=== PATIENT | female | born 1980 | race African-American/Black ===

== ENCOUNTER 2024-12-29 02:45 | Emergency (ER) | payer MEDICAID ==
[~2024-12-29] VITALS: Ht 167.6 cm; Wt 71.2 kg
[2024-12-29 02:54] VITALS: O2SAT 100
[2024-12-29] MEDS: ONDANSETRON HCL 4MG/2ML INJ IV ONE (03:44)
[2024-12-29] MEDS: KETOROLAC 15MG/ML VIAL IV ONE (03:44)
[2024-12-29] MEDS: SODIUM CHLORIDE 0.9% 1,000 ML IV ONE (03:44)
[2024-12-29 03:47] LABS: BASOPHILS % 3.3 % (0.0-2.0); EOSINOPHILS % 0.7 % (0.0-5.0); HEMATOCRIT. 37.3 % (36.0-48.0); HEMOGLOBIN. 12.7 g/dL (12.0-16.0); LYMPHOCYTES % 42.9 % (20.0-50.0); MEAN PLATELET VOLUME 9.0 fl (7.4-10.4); MONOCYTES % 7.7 % (2.0-8.0); NEUTROPHILS % 45.4 % (40.0-76.0); PLATELET 293 x1000/uL (130-400); RED BLOOD CELL COUNT 3.78 mill/uL (4.2-5.4); RED CELL DISTRIBUTION WIDTH 15.6 % (11.6-14.6)
[2024-12-29 03:49] LABS: COLOR URINE DARK YELLOW (YELLOW)
[2024-12-29 03:50] LABS: CLARITY URINE CLEAR (CLEAR); GLUCOSE URINE NEGATIVE (NEGATIVE); KETONES URINE NEGATIVE (NEGATIVE); LEUKOCYTE ESTERASE URINE TRACE (NEGATIVE); NITRITE URINE NEGATIVE (NEGATIVE); OCCULT BLOOD URINE NEGATIVE (NEGATIVE); PH URINE 7.0 (4.5-8.0); PROTEIN URINE NEGATIVE (NEGATIVE); SPECIFIC GRAVITY URINE 1.021 (1.005-1.030); UROBILINOGEN URINE 1.0 E.U./dL (0.2-1.0)
[2024-12-29 04:01] LABS: *AMPHETAMINES SCREEN URINE NEGATIVE (NEGATIVE)
[2024-12-29 04:02] LABS: *BARBITURATES SCREEN URINE NEGATIVE (NEGATIVE); *BENZODIAZEPINES SCREEN URINE NEGATIVE (NEGATIVE); *COCAINE SCREEN URINE NEGATIVE (NEGATIVE); CANNABINOID URINE SCREEN NEGATIVE (NEGATIVE); ECSTASY MDMA SCREEN URINE NEGATIVE (NEGATIVE); METHADONE URINE SCREEN NEGATIVE (NEGATIVE); OPIATES URINE SCREEN NEGATIVE (NEGATIVE); PHENCYCLIDINE URINE SCREEN NEGATIVE (NEGATIVE)
[2024-12-29] MEDS: HYDROXYZINE 25MG TABLET PO ONE (04:03)
[2024-12-29 04:05] LABS: TROPONIN I HIGH SENSITIVITY < 4 ng/L (3.0-34)
[2024-12-29 04:06] LABS: CREATININE 0.8 mg/dL (0.6-1.0)
[2024-12-29 04:07] LABS: UREA NITROGEN BLOOD 7 mg/dL (9-23)
[2024-12-29 04:08] LABS: ASPARTATE AMINOTRANSFERASE 405 IU/L (<34)
[2024-12-29 04:09] LABS: BILIRUBIN DIRECT 1.8 mg/dL (<=3.0); BILIRUBIN TOTAL 2.8 mg/dL (0.1-1.0); PROTEIN TOTAL 6.8 g/dL (6.0-8.3)
[2024-12-29 05:37] VITALS: BP 138/92; PULSE 85; RESP 16; TEMP 36.7; O2SAT 100
== END 2024-12-29 05:42 | disposition home or self-care (01) ==
LOC: ER 02:59
DX: M79.10 Myalgia, unspecified site (principal); R06.02 Shortness of breath
CPT/HCPCS: 80076; 80305; 80048; 81003; 81025; 80320; 83690; 85025; 85379; 84484; 36415; 71045; 76705; 93005; 96361; 96374; 96375; 99285; J1885; J2405; J7030; G0480

== ENCOUNTER 2025-01-16 07:38 | Emergency (ER) | payer MEDICAID ==
[~2025-01-16] VITALS: Ht 167.6 cm; Wt 70.0 kg
[~2025-01-16 07:38] MED LIST: CLOT45CR62 VG; DOXY100T2 MT; FOLI-43 PO; THIA100T72 PO
[2025-01-16 07:40] VITALS: O2SAT 96
[2025-01-16 08:20] LABS: BASOPHILS % 1.5 % (0.0-2.0); EOSINOPHILS % 1.3 % (0.0-5.0); HEMATOCRIT. 34.6 % (36.0-48.0); HEMOGLOBIN. 11.4 g/dL (12.0-16.0); LYMPHOCYTES % 41.1 % (20.0-50.0); MEAN PLATELET VOLUME 8.7 fl (7.4-10.4); MONOCYTES % 14.1 % (2.0-8.0); NEUTROPHILS % 42.0 % (40.0-76.0); PLATELET 181 x1000/uL (130-400); RED BLOOD CELL COUNT 3.30 mill/uL (4.2-5.4); RED CELL DISTRIBUTION WIDTH 16.8 % (11.6-14.6)
[2025-01-16 08:29] LABS: HCG SCREEN NEGATIVE
[2025-01-16 08:34] LABS: CREATININE 0.7 mg/dL (0.6-1.0)
[2025-01-16 08:35] LABS: UREA NITROGEN BLOOD 10 mg/dL (9-23)
[2025-01-16 08:36] LABS: ASPARTATE AMINOTRANSFERASE 121 IU/L (<34)
[2025-01-16 08:37] LABS: BILIRUBIN DIRECT 0.9 mg/dL (<=3.0); BILIRUBIN TOTAL 1.4 mg/dL (0.1-1.0); PROTEIN TOTAL 6.1 g/dL (6.0-8.3)
[2025-01-16] MEDS: METOCLOPRAMIDE HCL 10MG/2ML VIAL IV ONE (08:42)
[2025-01-16] MEDS: SODIUM CHLORIDE 0.9% 1,000 ML IV ONE (08:42)
[2025-01-16 09:21] LABS: CLARITY URINE TURBID (CLEAR); COLOR URINE YELLOW (YELLOW); GLUCOSE URINE NEGATIVE (NEGATIVE); KETONES URINE NEGATIVE (NEGATIVE); LEUKOCYTE ESTERASE URINE NEGATIVE (NEGATIVE); NITRITE URINE NEGATIVE (NEGATIVE); OCCULT BLOOD URINE NEGATIVE (NEGATIVE); PH URINE 5.5 (4.5-8.0); PROTEIN URINE NEGATIVE (NEGATIVE); SPECIFIC GRAVITY URINE 1.019 (1.005-1.030); UROBILINOGEN URINE 0.2 E.U./dL (0.2-1.0)
[2025-01-16 09:23] VITALS: BP 107/72; PULSE 103; RESP 18; TEMP 36.4; O2SAT 96
[2025-01-16 09:33] LABS: BACTERIA URINE 2+; SQUAMOUS EPITHELIAL CELL URINE 3+ /lpf (RARE/1+); WBC URINE 0-2 /hpf (0-2); YEAST URINE NONE SEEN
[2025-01-16] MEDS ORDERED: PROT40 MT (10:40)
[2025-01-16] MEDS: PANTOPRAZOLE SODIUM 40 MG/VIAL IV NR (10:54)
== END 2025-01-16 11:30 | disposition home or self-care (01) ==
LOC: ER 07:38
DX: K29.20 Alcoholic gastritis without bleeding (principal); K74.60 Unspecified cirrhosis of liver; Y90.9 Presence of alcohol in blood, level not specified
CPT/HCPCS: 99284; 96374; 96361; 96375; 80076; 80048; 81003; 81025; 84703; 83690; 85025; 36415; J2765; J2470; J7030